=== PATIENT | female | born 1990 | race Caucasian/White ===

== ENCOUNTER → 2024-05-16 08:10 | Outpatient (REF) | payer OTHER, SELFPAY ==
--- NOTE | 2024-05-16 08:28 | ECG_ITS ---
Test Reason : [employer] Z79.899 Blood Pressure : */* mmHG Vent. Rate : 80 BPM Atrial Rate : 80 BPM P-R Int : 154 ms QRS Dur : 86 ms QT Int : 384 ms P-R-T Axes : 43 54 44 degrees QTcB Int : 442 ms Normal sinus rhythm Normal ECG No previous ECGs available Referred By: Mariola Nieves Electronically Signed By: LALITO CUTLER
--- OUTSIDE RECORDS SUMMARY | 2024-05-16 08:49 | XMS_ITS | Data Portability ---
Author Organization [facility], [facility] Address [address] [place] [address] Care Team Providers Care Speech Professor Name Role Phone ARIELLE STEIN Referring Provider [phone] Assessment No assessment recorded. Plan of Treatment Reminders Order Date Submit Date Provider Last Modified By Organization Details Last Modified Time Details Appointments None recorded. Lab None recorded. Referral None recorded. Procedures None recorded. Surgeries None recorded. Imaging None recorded. Medication Orders Augmentin 875 mg-125 mg tablet 2020 021 INTERFACE [id number], [address], [place], [address], 11:37:06 Patient TargetsNo targets recorded. Patient Instructions Encounter Date Encounter Id Patient Instructions Last Modified By Organization Details Last Modified Time 04/30/2020 [id number] ANTIBIOTICS CAN REDUCE THE EFFECTIVENESS OF ORAL CONTRACEPTIVES. ALTERNATE MEANS OF CONTROL SHOULD BE USED UNTIL THE NEXT MENSTRUAL CYCLE AFTER FINISHING THE ANTIBIOTIC. [email or web address] Not available 04/30/2020 11:37:17 Reason for Referral None Reported. Procedures Surgical History Date Name Laterality Status Provider Name and Address Organization Details Recorded Time 04/30/19 21 Cerumen Disimpaction Lavage Only (PCP, WIC, Spec) completed Arielle Stein DO [address], [place], [address], [facility], [facility] 04/30/2020 11:26:17 Other completed Chapis Velazco [facility], [facility] 04/30/2020 11:07:25 Imaging Results None recorded. Procedure Notes None recorded. Medical Equipment None Reported. Allergies No known drug allergies Medications Name Sig Start Date Stop Date Status Note LastModified by Organization Details LastModified Time Augmentin 875 mg-125 mg tablet Take 1 tablet every 12 hours by oral route with meals for 10 days. 021 active Not Available Not Available Not Avai lable Vitals Date Recorded Body weight Provider Name an d Address Organization Details Last Updated DateTime 04/30/2020 87258.04 g [facility], [facility] 04/30/2020 11:12:33 Date Recorded Body mass index (BMI) Body height Provider Name and Address Organization Details Last Updated DateTime 04/30/2020 27.8 kg/m2 157.48 cm Chapis LYONS [facility] 04/30/2020 11:12:40 Date Recorded Body temperature Provider Name a nd Address Organization Details Last Updated DateTime 04/30/2020 98.3 [degF] Chapis Vleazco [place] [facility], [facility] 04/30/2020 11:13:59 Date Recorded Heart rate Provider Name an d Address Organization Details Last Updated DateTime 04/30/2020 88 /min [facility], [facility] 04/30/2020 11:14:29 Date Recorded Oxygen saturation Oxygen saturation in Arterial blood by Pulse oximetry Provider Name and Address Organization Details Last Updated DateTime 04/30/2020 98 % 98 % Chapis LYONS [facility], [facility] 04/30/2020 11:14:32 Date Recorded Respiratory rate Provider Name a nd Address Organization Details Last Updated DateTime 04/30/2020 16 /min Chapis Velazco [facility] 04/30/2020 11:14:35 Date Recorded Systolic blood pressure Diastolic blood pressure Provider Name and Address Organization Details Last Updated DateTime 04/30/2020 114 mm[Hg] 78 mm[Hg] Chapis LYONS [facility], [facility] 04/30/2020 11:14:26 Social History Question Answer Notes LastModified by Organizat ion Details LastModified Time Tobacco Smoking Status Never Smoker SERENA Mcginnis - [facility], [facility] 04/30/2020 11:07:19 Do You Have An Advance Directive? No Information not available 04/30/2020 What Is Your Level Of Alcohol Consumption? Occasional Information not available 04/30/2020 What Is Your Level Of Caffeine Consumption? Occasional Information not available 04/30/2020 In The 14 Days Before Symptom Onset, Have You Had Close Contact With A Laboratory-confir med COVID-19 While That Case Was Ill? No Information not available 04/30/2020 In The 14 Days Before Symptom Onset, Have You Had Close Contact With A Person Who Is Under Investigation For COVID-19 While That Person Was Ill? No Information not available 04/30/2020 Have You Been To An Area Known To Be High Risk For COVID-19? No Information not available 04/30/2020 What Type Of Diet Are You Following? REGULAR Information not available 04/30/2020 Education 4 Year College Informatio n not available 04/30/2020 Marital Status Single Informatio n not available 04/30/2020 What Was The Date Of Your Most Recent Tobacco Screening? 04/30/2020 Information not available 04/30/2020 Are You Sexually Active? Yes Information not available 04/30/2020 Do You Or Have You Ever Used Smokeless Tobacco? Never Used Smokeless Tobacco Information not available 04/30/2020 Sex: Unknown Functional Status Question Answer Note LastModified by Organizat ion Details LastModified Time What is your exercise level? Occasional Information not available 04/30/2020 Mental Status None recorded. Family History Relationship Description Onset Age of this Age Resolved Age Notes LastModified by Organization Details LastModified Time Paternal Grandfather Heart disease Not available 04/30 11:07:02 Maternal Grandmother Psoriasis Not available 0 04/30/2020 11:07:02 Maternal Grandmother Alzheimer's disease Not available 04/30 11:07:02 Mother Migraine Not availab le 04/30/2020 11:07:02 Unspecified Relation Crohn's disease Not available 04/30 11:07:02 Unspecified Relation Asthma Not available 2020 11:07:02 Sister Migraine Not availab le 04/30/2020 11:07:02 Sister Anxiety Not availabl e 04/30/2020 11:07:02 Medical History Condition Response Headaches/Migraines Y Gynecological HistoryNo gynecological history recorded. Obstetrics History GPAL:G 0 P 0 0 0 0 Past Encounters Encounter ID Performer Location Encounter Start Date Encounter Closed Date Diagnosis/Indication Diagnosis SNOMED-CT Code Diagnosis ICD10 Code Diagnosis Note [id number] Arielle Stein DO [facility] [address] [place] [address] 04/30/2020 10:40:41 04/30/2020 11:40:08 Impacted cerumen in right ear 4442316984 471191 H61.21 Acute righ t otitis media 793414780 H66.91 Health Concerns Section Related Observation LastModified by Organization Detai ls LastModified Time None Recorded Concern Status LastModified by Organization Details LastModified Time None Recorded Advance Directives Directive N: Payers Encounter Date Sequence Insurance Name Policy Number Policy Sampson Covered Member ID Sampson Member ID Guarantor Name 04/30/2020 1 [employer] [id number] Azucena Yarbrough [id number] Azucena Yarbrough Notes Date Note Type Note Provider Name and Address Organization Details Recorded Time 04/30/2020 text/html Ear ComplaintRep orted bypatient.Reason for visit:acute complaint Location:right ear Quality:pressure. Severity:mild Duration:intermittent Onset/Timin days ago Context:no other sick contacts; no recent swimming; no recent air travel; no recent scuba diving; no recent injury Alleviating factors:nothing Aggravating factors:nothing Associated Symptoms:no fever; no swollen lymph nodes; no exudates; no jaw painNotes:acute. CORONAVIRUS SCREENING TOOL ?Fever Confirmation ?No ?Respiratory Illnesses ?No ?Other New Symptoms ?None of the below ?Coronavirus Diagnosis/Testing/Quar antine ?No, I have not been tested ?Coronavirus Test Reason ?N/A ?Contact with Coronavirus ?No Imported from [facility] on 04/30/2020 Arielle Stein DO [address], [place], [address], [facility], [facility] 04/30/2020 11:37:47 OBGyn Episode No OBEpisode recorded.
--- OUTSIDE RECORDS SUMMARY | 2024-05-16 08:49 | XMS_ITS | Clinical Summary ---
Author Organization [facility] Address [address] [id number] Care Team Providers Care New Grad Rn Name Role Phone Luis Miguel Mccarty MD Primary Care Provider [phone] Allergies No known active allergies Medications No known medications Immunizations Name Administration Dates Next Due DTP 03/31/1994,04/04/1993,1992 ,1992 DTaP 02/05/1997 HIB (PRP-T) 12/29/1993,04/04/1993,1992 ,1992 HPV4 (Gardasil 4) 10/10/2010,06/20/2010,05/16/19 10 07/14/2009 Hep B (pedi) 09/29/1993,04/04/1993,1992 IPV 03/31/1994,1992,1992 MMR 02/05/1997,12/29/1993 OPV 02/05/1997 Td (adult), adsorbed 12/15/2004 Varicella 11/03/1997 Family History Medical History Relation Name Comments Other Father kidney stone Heart Disorder Paternal grandfather Lipid/Cholesterol Abnormality Sister Relation Name Status Comments Father Paternal grandfather Sister Social History Tobacco Use Types Packs/Day Years Used Date Smoking Tobacco: Never Smokeless Tobacco: Never Alcohol Use Standard Drinks/Week Comments No 0 (1 standard drink = 0.6 oz pur e alcohol) Comments No Sex and Gender Information Value Date Recorded Sex Assigned at Not on file Legal Sex Female 10:23 PM EDT Gender Identity Not on file Sexual Orientation Not on file Occupation Industry Job Start Date Job End Date grade 12 Not on file Not on file Not on file Last Filed Vital Signs Vital Sign Reading Time Taken Comments Blood Pressure 106/66 06/20/2010 9:26 AM EST Pulse - - Temperature - - Respiratory Rate - - Oxygen Saturation - - Inhaled Oxygen Concentration - - Weight 56.2 kg (124 lb) 06/20/2010 9:26 AM EST Height 160 cm (5' 3 ) 06/20/2010 9:26 AM EST Body Mass Index 21.97 06/20/2010 9:26 AM EST Plan of Treatment Health Maintenance Due Date Last Done Comments Hepatitis C Screening 1992 DTaP/Tdap/Td (6 - Tdap) 12/16/2004 12/16/19, 02/05/1997, 03/31/1994, Additional history exists Pap Smear 2008 COVID-19 Vaccine ( season) 2023 Influenza (#1) 2023 Zoster (Shingrix) (1 of 2) 2042 11/03/1997 Hep B Completed 09/29/1993, 03/19, 1992 Hib Completed 12/29/1993, 03/19, 1992, Additional history exists HPV Vaccine Completed 10/10/2010, 07/2010, 05/16/2009 Hep A Aged Out No longer eligi ble based on patient's age to complete this topic Meningococcal ACWY Aged Out No longer eligible based on patient's age to complete this topic Pneumococcal Aged Out No longer eligi ble based on patient's age to complete this topic Insurance [facility] [place] Care Teams New Grad Rn Relationship Specialty Start Date End Date Luis Miguel Mccarty MD [facility] [address] [place] [id number] PCP - General 07/11/05
--- OUTSIDE RECORDS SUMMARY | 2024-05-16 08:49 | XMS_ITS | Encounter Summary ---
Author Organization [facility] Address [address] [id number] Care Team Providers Care Impact Retail Service Merchandiser Name Role Phone Luis Miguel Mccarty MD Primary Care Provider [phone] Encounter Details Date Type Department Care Team (Late st Contact Info) Description 05/16/2009 Orders Only [place] [facility] [address] [place] [address] Tawanna Rodriguez CNM Social History Tobacco Use Types Packs/Day Years Used Date Smoking Tobacco: Never Alcohol Use Standard Drinks/Week Comments No 0 (1 standard drink = 0.6 oz pur e alcohol) Comments No Sex and Gender Information Value Date Recorded Sex Assigned at Not on file Legal Sex Female 10:23 PM EDT Gender Identity Not on file Sexual Orientation Not on file Occupation Industry Job Start Date Job End Date grade 11 Not on file Not on file Not on file documented as of this encounter Progress Notes * Anuja Dean - 05/20/2009 9:07 AM ADOLFOQuick Note: NORMAL LETTER DONE. TO PROVIDER FOR REVIEW. documented in this encounter Plan of Treatment Not on file documented as of this encounter Procedures * Due to [place] [employer] law, this organization might not be sharing negative HIV tests. Procedure Name Priority Date/Time Associated Diagnosis Comments CHLAMYDIA TRACHOMATIS, SDA (GENITAL SWAB) Routine 05/16/2009 Routine gynecological examination documented in this encounter Results * Due to [place] [employer] law, this organization might not be sharing negative HIV tests. * CHLAMYDIA TRACHOMATIS, SDA (GENITAL SWAB) (05/16/2009) CHLAMYDIA TRACHOMATIS DNA SEE TEXT [facility] Comment: SOURCE: ENDOCERVIX NOT DETECTED CT/NG SDA REFERENCE RANGE: NOT DETECTED 05/16/2009 05/16/2009 8:3 1 PM EST Tawanna Rodriguez CNM LABORATORY Final Result Performing Organization Address City/State/[facility] Co de Phone Number [facility] [address] [place] [address] documented in this encounter Visit Diagnoses Diagnosis Routine gynecological examination documented in this encounter Care Teams Impact Retail Service Merchandiser Relationship Specialty Start Date End Date Luis Miguel Mccarty MD [facility] [address] [place] [id number] PCP - General 07/11/05 documented as of this encounter
--- OUTSIDE RECORDS SUMMARY | 2024-05-16 08:49 | XMS_ITS | Encounter Summary ---
Author Organization [facility] Address [address] [id number] Care Team Providers Care Bezel Cutter Name Role Phone Luis Miguel Mccarty MD Primary Care Provider [phone] Encounter Details Date Type Department Care Team (Late st Contact Info) Description 06/20/2010 Orders Only [place] [employer] [address] [place] [address] Tawanna Rodriguez CNM Social History Tobacco Use [...] as of this encounter Progress Notes * Shamika Wheeler - 06/30/2010 4:06 PM EDTQuick Note: Neg letter sent documented in this encounter Plan of Treatment Not on file documented as of this encounter Procedures * Due to [place] [employer] law, this organization might not be sharing negative HIV tests. Procedure Name Priority Date/Time Associated Diagnosis Comments CHLAMYDIA TRACHOMATIS, SDA (GENITAL SWAB) Routine 06/20/2010 Routine gynecological examination documented in this encounter Results * Due to [place] [employer] law, this organization might not be sharing negative HIV tests. * CHLAMYDIA TRACHOMATIS, SDA (GENITAL SWAB) (06/20/2010) CHLAMYDIA TRACHOMATIS DNA SEE TEXT [facility] Comment: SOURCE: ENDOCERVIX NOT DETECTED CT/NG SDA REFERENCE RANGE: NOT DETECTED 06/20/2010 06/20/2010 9:1 8 PM EST Tawanna Rodriguez CNM LABORATORY Final Result [facility] [address] [place] [address] documented in this encounter Visit Diagnoses Diagnosis Routine gynecological examination documented in this encounter Care Teams Bezel Cutter Relationship Specialty Start Date End Date Luis Miguel Mccarty MD [facility] [address] [place] [id number] PCP - General 07/11/05 documented as of this encounter
== END ==
LOC: HO.CARD 08:10
PROVIDERS: PCP Family Medicine; Visit Provider Registered Nurse
DX: Z79.899 Other long term (current) drug therapy (principal)
CPT/HCPCS: 93005

== ENCOUNTER → 2024-05-16 08:28 | Outpatient (BNV) | payer OTHER, SELFPAY | PROVIDERS: PCP Family Medicine; Visit Provider Internal Medicine | DX: Z79.899 Other long term (current) drug therapy (principal) | CPT/HCPCS: 93010 ==